=== PATIENT | male | born 1975 | race Caucasian/White ===

== ENCOUNTER 2024-05-26 11:20 | Emergency (ER) | payer OTHER, SELFPAY ==
[2024-05-26 11:25] VITALS: BP 143/87; PULSE 110; RESP 18; TEMP 36.8; O2SAT 98; BMI 31.4
--- NOTE | 2024-05-26 13:59 | W.ED.EYEPROB ---
HPI - Eye Problem General: Chief complaint: Eye Problems Stated complaint: Glue in Left eye Time Seen by Provider: 05/26/24 13:35 History of Present Illness: 49-year-old male presents emergency department chief complaint of mistakenly using superglue instead of eyedrops into his left eye patient endorses he placed 1 drop last night of the eye which immediately flushed it he presents to the ER today with continued irritation inflammation appreciated left eye as well as glued on his lids of his eye patient endorses some blurred vision that is continued reporting no other associated symptoms Associated symptoms: Denies fever(s), headache(s), nausea or vomiting Related Data Home Medications Medication Instructions Recorded Confirmed propylene glycol 0.6 % eye drops 1 drp ophthalmic (eye) BID PRN dry 05/26/24 05/26/24 (Systane Complete) eye Previous Rx's Medication Instructions Recorded erythromycin 5 mg/gram (0.5 %) eye 1 applic ophthalmic (eye) Q8H 5 05/26/24 ointment (3.5 gram tube) days #50 grams Allergies Allergy/AdvReac Type Severity Reaction Status Date / Time No Known Allergies Allergy Verified 05/26/24 11:30 Review of Systems General: Reports: 10 or more systems reviewed and unremarkable except in HPI and below Const: Denies: fever(s), chills, fatigue or malaise Eyes: Reports: change in vision, blurry vision, eye discomfort, eye redness and increased production of tears Card: Denies: chest pain or palpitations Resp: Denies: dyspnea or productive cough GI: Denies: abdominal pain, nausea or vomiting : Denies: flank pain Musc: Denies: extremity pain or extremity swelling Skin/Breast: Denies: rash or pruritus Neuro: Denies: headache(s) Psych: Denies: anxiety or depression Daniel/Lymph: Denies: easy bleeding All/Imm: Denies: urticaria, throat swelling or facial swelling Physical Exam Const: COMMON NORMALS: no acute distress, patient oriented x3 and healthy appearing HENMT: COMMON NORMALS: normocephalic and atraumatic HEAD & SCALP: normocephalic and atraumatic Eye: COMMON NORMALS: Equal, round and reactive pupils present, EOMs intact bilaterally and conjunctivae normal (Conjunctival injection noted on fluorescein tetracaine there is a type fluo) CONJUNCTIVA: Yes conjunctivae normal (Conjunctival injection noted on fluorescein tetracaine there is a type fluo) PUPIL: Yes Equal, round and reactive pupils present Neck/C-Spine: COMMON NORMALS: full ROM, supple and no JVD Lymph: LYMPHATIC: no lymphadenopathy noted Chest: COMMONS NORMALS: normal inspection of the chest and normal palpation of entire chest wall Resp: COMMON NORMALS: normal respiratory effort, No retractions and clear to auscultation bilaterally EFFORT & INSPECTION: Yes able to speak in complete sentences and Yes symmetric chest movement AUSCULTATION: clear to auscultation bilaterally Cardio: COMMON NORMALS: no JVD, regular rate and regular rhythm RATE: regular rate RHYTHM: regular rhythm GI: COMMON NORMALS: Normal to inspection, nondistended, normoactive bowel sounds present, Soft to palpation and non-tender INSPECTION: Yes normal to inspection PALPATION: Yes Soft to palpation : COMMON NORMALS: Yes no CVA tenderness BLADDER/KIDNEY EXAM: Yes no CVA tenderness Back/Pelvis: COMMON NORMALS: no CVA tenderness Extremity: COMMON NORMALS: normal to inspection and full ROM Neuro: COMMON NORMALS: patient oriented x3, CN's II-XII intact bilaterally, moves all extremities and no focal motor deficits Psych: COMMON NORMALS: mental status grossly normal, Normal thought process present, cooperative and normal affect THOUGHT PROCESS: Normal thought process present Skin: COMMON NORMALS: no rashes or lesions noted GENERAL SKIN EXAM: no rashes or lesions noted Course Vital Signs: Vital signs: Vital Signs Temperature 98.2 F 05/26/24 11:25 Pulse Rate 110 H 05/26/24 11:25 Respiratory Rate 18 05/26/24 11:25 Blood Pressure 143/87 05/26/24 11:25 Pulse Oximetry 98 05/26/24 11:25 Oxygen Delivery Me thod Room Air 05/26/24 11:25 MDM - Eye Problem Medical Decision Making Due to patient's symptoms and condition and he went underwent fluorescein tetracaine there was little bit of uptake in the visual field concerning for corneal abrasion patient underwent a Elfego's lens with a significant copious months of saline irrigation with a provided in which afterwards erythromycin ophthalmologic ointment was applied to the lids of the eye and help to remove as much of the retained superglue was possible patient will be subcu discharged home provide with a direct discharge erythromycin ophthalmologic ointment advised further follow-up with primary care in 3 to 5 days and was to return the interim if any of his symptoms persist or worsen. No radiology studies performed this visit Discharge Plan Discharge Patient Disposition: Home Clinical Impression: Corneal abrasion, Blepharitis of eyelid of left eye Condition: Stable Prescriptions: New erythromycin 5 mg/gram (0.5 %) ointment 1 applic ophthalmic (eye) Q8H 5 Days Qty: 50 0RF No Action Systane Complete 0.6 % Drops 1 drp OPHTHALMIC (EYE) BID PRN (Reason: dry eye ) Discharge Orders: Discharge ED (Routine); Ordered 05/26/24 Ordered By: Raza Morales Discharge Diet: Advance as tolerated Patient Instructions: Blepharitis (ED), Corneal Abrasion (ED) Activity Restrictions/Additional Instructions: Please further follow your primary care doctor in 5 to 7 days for further eval use medications as prescribed and which please return the interim if any of your symptoms persist or worse Coding Level of Care Code ED 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
[2024-05-26] MEDS: sodium chloride 0.9% 1,000 ML 999 ML IV ×2 (15:09→15:38)
[2024-05-26] MEDS: erythromycin Op Oint 1 gm 1 APPLIC EYE-LEFT (16:37)
[2024-05-26] MEDS: tetracaine 0.5% Op Soln 4 mL Btl 1 DROP EYE-LEFT (16:49)
[2024-05-26] MEDS: fluorescein 1 mg Strip EYE-LEFT (16:49)
[2024-05-26 17:15] VITALS: BP 143/94; PULSE 84; RESP 14; O2SAT 100
--- NOTE | 2024-05-26 17:15 | PC.NURSE ---
Pt had left eye flushed with stephany lens during visit.
[2024-05-26 17:16] VITALS: BP 143/94; PULSE 84; RESP 14; O2SAT 100
== END 2024-05-26 17:16 | disposition home or self-care (01) ==
PROVIDERS: Emergency Provider Emergency Medicine
DX: S05.02XA Injury of conjunctiva and corneal abrasion without foreign body, left eye, initial encounter (principal); X58.XXXA Exposure to other specified factors, initial encounter; H01.006 Unspecified blepharitis left eye, unspecified eyelid
CPT/HCPCS: 96360; 96361; 99284; J7030